=== PATIENT | male | born 1980 | race African-American/Black ===

== ENCOUNTER → 2023-11-25 | Emergency (ER) | payer OTHER ==
[~2023-11-25] MED LIST: LIDOCAINE 2% W/EPI 1:200,000 MPF 20 ML VIAL IM ONE; MORPHINE 2 MG/ML SYR ONE
[2023-11-25 17:10] LABS: Absolute Lymphocytes (CBC) 0.7 K/uL (0.7-4.9); Hematocrit 33.7 % (39.6-49.0); Lymphocytes % 21.1 % (15.3-44.8); MCV 80.9 fL (80-100); Platelets 187 thou/uL (152-406); RBC Red Blood Cell Count 4.17 M/uL (4.33-5.43)
[2023-11-25 17:21] LABS: Potassium 3.8 mEq/L (3.5-5.1)
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
[2023-11-26 01:25] VITALS: BP 127/94; TEMP 98.2; O2SAT 100
== END ==
LOC: ER 16:14
PROC: 0HQ1XZZ Repair Face Skin, External Approach (ICD-10-PCS; principal; 2023-11-25)
DX: S01.81XA Laceration without foreign body of other part of head, initial encounter (principal); M54.2 Cervicalgia; M54.9 Dorsalgia, unspecified; Y04.8XXA Assault by other bodily force, initial encounter; Z88.0 Allergy status to penicillin; F17.210 Nicotine dependence, cigarettes, uncomplicated
CPT/HCPCS: 85025; 80048; 36415; 86900; 86850; 86901; 70450; 72125; 71260; 74177; 96374; 99284; 12013; Q9967; J2270